=== PATIENT | female | born 1960 | race Caucasian/White ===

== ENCOUNTER 2019-09-27 08:47 | Day surgery (SDC) | payer OTHER ==
[~2019-09-27] VITALS: Ht 165.1 cm; Wt 116.0 kg
[2019-09-27] MEDS ORDERED: IRON TABLETS325 MG PO (09:13)
[2019-09-27] MEDS ORDERED: ZYRTEC 10MG10 MG PO (09:14)
[2019-09-27] MEDS ORDERED: NATURAL POTASS595 MG PO (09:16)
[2019-09-27] MEDS ORDERED: ONE-A-DAY ESSE1 EACH PO (09:16)
[2019-09-27] MEDS ORDERED: VITAMIN C500 MG PO (09:17)
[2019-09-27] MEDS ORDERED: MASON NATURAL2000 IU PO (09:17)
[2019-09-27] MEDS ORDERED: B-121000 MCG PO (09:18)
[2019-09-27 09:35] VITALS: BP 137/81; PULSE 66; TEMP 97.7
--- NOTE | 2019-09-27 10:40 | NUR ---
Patient up to restroom at this time. Patient denies pain, nausea, or dizziness. Patient has steady gait to restroom with standby.
[2019-09-27 13:13] VITALS: BP 110/53; PULSE 63; TEMP 97.3
--- NOTE | 2019-09-27 13:13 | NUR ---
Patient arrives back from OR alert, complains of being cold. Warm blankets applied. Patient monitor applied. Vitals stable. Patient denies pain or nausea. Dressing on right flank clean/dry/intact. Patient's spouse at bedside.
--- NOTE | 2019-09-27 13:20 | NUR ---
Pat (Stimulator Rep) into see patient and patient's spouse at this time.
[2019-09-27 13:30] VITALS: BP 129/73; PULSE 72
--- NOTE | 2019-09-27 13:30 | NUR ---
Pat finished educating patient at this time.
--- NOTE | 2019-09-27 13:35 | NUR ---
Patient complains of pain at incision site/right flank. Patient reports pain 8/10. Vital signs stable, patient has ate muffin and drank soda without any nausea.
[2019-09-27 13:45] VITALS: BP 112/84; PULSE 73
--- NOTE | 2019-09-27 13:55 | NUR ---
Patient reports pain is much better/less. Patient states she wants to try to go the bathroom and go home soon.
--- NOTE | 2019-09-27 14:00 | NUR ---
Patient up to restroom at this time with standby assist.
--- NOTE | 2019-09-27 14:05 | NUR ---
Patient reports she was able to void without any difficulties or complications.
--- NOTE | 2019-09-27 14:15 | NUR ---
Patient reports that she feels like her blood sugar might be low. Patient given some orange juice and AccuCheck assessed and is 173 at this time. Patient reports she feels much better after the orange juice.
--- NOTE | 2019-09-27 14:20 | NUR ---
Dismissal instructions gone over with patient and patient's spouse. Both verbalize understanding and all questions answered.
--- NOTE | 2019-09-27 14:30 | NUR ---
Patient discharged to patient enterance via wheelchair to private vehicle. Patient leaves thanking staff for services.
== END 2019-09-27 14:30 | disposition home or self-care (01) ==
LOC: SDCO 08:47
DX: R32 Unspecified urinary incontinence (principal); Z98.84 Bariatric surgery status; Z83.3 Family history of diabetes mellitus; Z79.899 Other long term (current) drug therapy; Z82.49 Family history of ischemic heart disease and other diseases of the circulatory system; K44.9 Diaphragmatic hernia without obstruction or gangrene; G89.29 Other chronic pain
CPT/HCPCS: C1767; C1778; C1787; C1894; J0690; J2250; J2405; J2704; J3010; J7120